=== PATIENT | male | born 1985 ===

== ENCOUNTER → 2021-03-13 14:48 | Outpatient (CLI) | payer OTHER | END | disposition home or self-care (01) | LOC: LAB 14:48 | PROVIDERS: ATTEND Obstetrics & Gynecology | DX: Z20.818 Contact with and (suspected) exposure to other bacterial communicable diseases (principal); Z20.828 Contact with and (suspected) exposure to other viral communicable diseases ==

== ENCOUNTER 2024-11-23 09:22 | Emergency (ER) | payer OTHER ==
[~2024-11-23] VITALS: Ht 182.9 cm; Wt 112.5 kg
[2024-11-23] MEDS ORDERED: ZEPBOUND10 MG/0.5 SQ (09:44)
[2024-11-23] MEDS ORDERED: KETOROLAC TROMETHAMINE 60 MG VIAL IM ONE ×2 (10:28→10:30)
[2024-11-23] MEDS ORDERED: IBUPROFEN800 MG PO (12:53)
== END 2024-11-23 13:15 | disposition home or self-care (01) ==
LOC: ER 09:22
DX: S69.81XA Other specified injuries of right wrist, hand and finger(s), initial encounter (principal); W22.8XXA Striking against or struck by other objects, initial encounter; Y93.89 Activity, other specified; Y92.89 Other specified places as the place of occurrence of the external cause